=== PATIENT | female | born 1990 | race Caucasian/White ===

== ENCOUNTER → 2016-03-20 | Outpatient (CLI) | payer SELFPAY ==
--- NOTE | 2016-03-20 14:42 | DI ---
LEFT ELBOW, 03/20/2016 1:51 PM: Clinical History: Left elbow pain. Previous Exam: None at this facility. 2 views are submitted. There is dislocation of the ulna with internal rotation of the ulna by 90 degr ees. There is a fracture there is a large joint effusion. Of the proximal ulna approximately 3 cm dis tino to the coracoid process. The radial head is subluxed laterally and posteriorly. Reading: Fracture of the proximal ulna with dislocation of the ulna at the elbow joint. The proximal portion o f the ulna is rotated internally and 90 degrees in the anatomic position. There is subluxation of the radial head.
== END ==
LOC: MOB RAD 13:53
DX: M25.522 Pain in left elbow (principal); S52.272A Monteggia's fracture of left ulna, initial encounter for closed fracture; M25.422 Effusion, left elbow; W00.0XXA Fall on same level due to ice and snow, initial encounter
CPT/HCPCS: 73080

== ENCOUNTER 2016-03-21 15:16 | Day surgery (SDC) | payer SELFPAY ==
[~2016-03-21 15:16] MED LIST: LIDOCAINE W/ SODIUM BICARB 0.5 ML SYR ONE; Lactated Ringers 1,000 ML PRIMARY IV ONE; ceFAZolin Inj 2gm (Premix) 50 ML IV ONE
[2016-03-21] MEDS ORDERED: LIDOCAINE 2%/ EPI 1:200,000 - 20 ML VIAL ONE (16:26)
[2016-03-21] MEDS ORDERED: MIDAZOLAM 5 MG/1 ML ONE (16:26)
[2016-03-21] MEDS ORDERED: fentaNYL Inj 250 MCG/5 ML VIAL ONE (16:27)
[2016-03-21] MEDS ORDERED: BUPIVACAINE 0.5% W/ EPI - 10 ML VIAL ONE (16:27)
--- NOTE | 2016-03-21 16:47 | CRNA.PROCE ---
Nerve Block Documentation - - Safety Measures: Time Out Taken, Site Verified - - Type of Nerve Block Used: Left Infraclavicular Block Position for Nerve Block: Supine Moniters Used During Block: EKG, SPO2, NIBP Oxygen Sumpplented: Yes Sedation Used - Enter Amount in Comment Field: Midazolam (mg): Yes (2mg iv), Fentanyl (mcg): Yes (100mcg iv) Skin Prep Used: ChloroPrep Technique: Nerve Stimulator Nerve Block Needle Used: 80 mm ProBlk II Stimulation Hz: 1.0 Stimulation Staring mA: 1.2 Stimulation Ending mA: 0.5 Local Anesthetic - Enter Amt in Comment Field: 0.5 % Bupivicaine with Epinephrine 1:200,000 (mL): Yes (20ml), 2 % Xylocaine with Epinephrine 1:200, 000 (mL): Yes (20ml)
[2016-03-21] MEDS ORDERED: MEPIVACAINE HCL/PF 20 MG/1 ML IV ONE (17:20)
[2016-03-21] MEDS ORDERED: LIDOCAINE HCL 1%/EPI 1:100,000 - 20 ML VIAL ONE ×2 (17:21→17:54)
[2016-03-21] MEDS ORDERED: BACITRACIN 50,000 UNIT VIAL IRRIG ONE (17:52)
[2016-03-21] MEDS ORDERED: Sodium Chloride 0.9% vial 10 ML ONE (17:53)
[2016-03-21] MEDS ORDERED: DEXAMETHASONE SOD PHOSPHATE 4 MG/1 ML VIAL ONE (18:10)
[2016-03-21] MEDS ORDERED: ONDANSETRON 4 MG/2 ML VIAL ONE (18:10)
[2016-03-21] MEDS ORDERED: Lactated Ringers 1,000 ML PRIMARY IV ONE (19:17)
[2016-03-21] MEDS ORDERED: HYDROcodone-APAP 7.5 MG-325 MG TABLET PO PRN (19:41)
[2016-03-21] MEDS ORDERED: NORMAL SALINE 10 ML SYRINGE FLUSH IVP PRN (19:41)
[2016-03-21] MEDS ORDERED: ONDANSETRON 4 MG/2 ML VIAL IVP PRN (19:41)
[2016-03-21] MEDS ORDERED: Lactated Ringers 1,000 ML PRIMARY IV SCH (19:45)
[2016-03-21] MEDS ORDERED: Ondansetron ODT Tab 8 MG TAB PO ONE ×3 (20:05→20:33)
[2016-03-21 20:51] VITALS: RESP 14; TEMP 97.4
== END 2016-03-21 20:45 | disposition home or self-care (01) ==
LOC: SDSC 15:16
PROVIDERS: ATTEND Orthopaedic Surgery
DX: S52.272A Monteggia's fracture of left ulna, initial encounter for closed fracture (principal)
CPT/HCPCS: 24635; 76001; 84703; 87641; A4216; J0690; J2704; J3010; Q0162; J0670; J1100; J2250; J2405; J7120

== ENCOUNTER → 2016-04-01 | Outpatient (CLI) | payer SELFPAY ==
--- NOTE | 2016-04-01 15:52 | DI ---
XR ELBOW 2VW,04/01/2016 2:25 PM: Clinical History: Left elbow fracture. Previous Exam: March 20, 2016 Findings: AP and lateral views of the left elbow are obtained, and demonstrate screw and plate fixation of the ulna with some mild comminution. Overlying plaster limits fine bony detail. Impression: New open reduction internal fixation of the left proximal ulna with near-anatomic reduction.
== END ==
LOC: ORTHO 14:56
PROVIDERS: ATTEND Orthopaedic Surgery
DX: S52.002 Unspecified fracture of upper end of left ulna (principal)
CPT/HCPCS: 73070

== ENCOUNTER → 2016-04-29 | Outpatient (CLI) | payer SELFPAY ==
--- NOTE | 2016-04-29 12:45 | DI ---
LEFT ELBOW, 04/29/2016 11:26 AM: Clinical History: Closed fracture of the proximal left ulna. Previous Exam: 04/01/2016. 3 views are submitted. The patient is status post ORIF of the fracture to the proximal shaft of the l eft ulna. The fracture lucency is still visible. Periosteal new bone formation is present. Alignment and position are anatomic. Reading: Status post ORIF of the healing fracture of the proximal left ulna with anatomic alignment and positi on.
== END ==
LOC: ORTHO 11:35
PROVIDERS: ATTEND Orthopaedic Surgery
DX: S52.002 Unspecified fracture of upper end of left ulna (principal)
CPT/HCPCS: 73080

== ENCOUNTER → 2016-05-23 | Outpatient (CLI) | payer SELFPAY ==
--- NOTE | 2016-05-23 15:29 | DI ---
LEFT ELBOW, 05/23/2016 3:02 PM: Clinical History: Closed fracture of the proximal ulna with routine healing. Previous Exam: 04/29/2016. AP and lateral views are submitted. 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 Alignment and position are anatomic. The fracture lucency is slightly less visible than on the p revious exam and there is some sclerosis at the fracture site indicating healing. Reading: Healing fracture of the proximal ulna with anatomic alignment and position.
== END ==
LOC: RAD 15:18
PROVIDERS: ATTEND Orthopaedic Surgery
DX: S52.272 Monteggia's fracture of left ulna (principal)
CPT/HCPCS: 73070; 73080